=== PATIENT | female | born 1985 | race Caucasian/White ===

== ENCOUNTER 2018-09-30 05:14 | Emergency (ER) | payer SELFPAY ==
--- NOTE | 2018-09-30 05:29 | PDOC ---
History of Present Illness - General Stated Complaint: BACK PAIN - History of Present Illness Initial Comments: The pt is a 33F w/ a history of b/l nephrolithiasis who presents for evaluation of 2 days of left back/flank pain that has been intermittent, achy/sharp, radiates around towards her suprapubic area, is associated with dysuria/ hematuria and nausea, is worsened by movement/touch, and alleviated with recumbency. She reports being told she had stones 7 months ago and passed the ones on her right but not her left. She had a CT done in [place] but not one here. PMH: GERD PSH: Denies Meds: omeprazole, ranitidine SH: Denies x3 PCP: Denies 09/30/18 05:56 Past History - Past Medical History Allergies/Adverse Reactions: Allergies Allergy/AdvReac Type Severity Reaction Status Date / Time No Known Allergies Allergy Verified 09/30/18 05:39 Home Medications: Ambulatory Orders Nitrofurantoin Monohyd/M-Cryst [Macrobid -] 100 mg PO BID #14 capsule 09/30/18 Review of Systems - Review of Systems Able to Perform ROS?: Yes Comments:: GENERAL/CONSTITUTIONAL: No fever or chills. No weakness HEAD, EYES, EARS, NOSE AND THROAT: No change in vision. No change in hearing. No sore throat CARDIOVASCULAR: No chest pain or shortness of breath RESPIRATORY: Denies cough, hemoptysis GASTROINTESTINAL: +Nausea; Denies vomiting, diarrhea or constipation GENITOURINARY: +dysuria, hematuria MUSCULOSKELETAL: No joint or muscle swelling or pain. No neck or back pain SKIN: No rash NEUROLOGIC: No headache, vertigo, loss of consciousness, or change in strength/ sensation ENDOCRINE: No increased thirst. No abnormal weight change HEMATOLOGIC/LYMPHATIC: No anemia, easy bleeding, or history of blood clots ALLERGIC/IMMUNOLOGIC: No hives or skin allergy 09/30/18 05:29 Is the patient limited Khmer proficient: No *Physical Exam - Vital Signs Initial Vital Signs Temp Pulse Resp BP Pulse Ox 98.2 F 86 20 128/78 99 09/30/18 05:41 09/30/18 05:41 09/30/18 05:41 09/30/18 05:41 09/30/18 05:41 09/30/18 06:06 - Physical Exam Comments: GENERAL: Awake, alert, and oriented to person/place/time, in no acute distress HEAD: No signs of trauma, normocephalic, atraumatic EYES: PERRLA, EOMI, sclera anicteric, conjunctiva clear ENT: Hearing grossly normal, nares patent, oropharynx clear without exudates. Moist mucosa LUNGS: No distress, speaks in full sentences, clear to auscultation bilaterally HEART: Regular rate and rhythm, normal S1 and S2, no murmurs appreciated, peripheral pulses normal and equal bilaterally ABDOMEN: Soft, Right flank/suprapubic pain, R CVA TTP, normoactive bowel sounds. No guarding, no rebound EXTREMITIES: Normal inspection, Normal range of motion, no edema. No clubbing or cyanosis NEUROLOGICAL: Cranial nerves II through XII grossly intact. Normal speech, normal gait, no focal sensorimotor deficits SKIN: Warm, Dry 09/30/18 05:29 ED Treatment Course - LABORATORY CBC & Chemistry Diagram: 09/30/18 05:46 09/30/18 05:46 Medical Decision Making - Medical Decision Making The pt is a 33F w/ a history of GERD and b/l nephrolithiasis who presents for evaluation of 2 days of R back/flank pain with associated hematuria/dysuria Ddx: nephrolithiasis, infected stone, pyelo, UTI, consider ectopic, less likely AAA ED Course CMP, CBC, UA, UCx IVF, Ofirmev CT A&P w/o contrast 09/30/18 06:07 Upreg neg -Toradol 30mg IV once -Pt to CT UA w/ evidence of UTI -Macrobid 100mg BID for 7 days No leukocytosis No anemia 09/30/18 06:23 Lytes unremarkable No MARK LFTS wnl 09/30/18 06:35 Caliectasis left kidney and prominent left ureter, possibly due to occult or recently passed stone. Punctate stone left kidney and multiple small stones right kidney. No visible ureteral or bladder stones. Unremarkable pancreas and gallbladder. No bowel obstruction, colitis, diverticulitis, free fluid or free air. Normal appendix. Tiny umbilical hernia containing fat Plan for D/C w/ Urology Discharge instructions and return precautions given Pt in agreement and verbalized understanding Dispo: home 09/30/18 07:12 *DC/Admit/Observation/Transfer Diagnosis at time of Disposition: Nephrolithiasis UTI (urinary tract infection) Qualifiers: Urinary tract infection type: acute cystitis Hematuria presence: with hematuria Qualified Code(s): N30.01 - Acute cystitis with hematuria - Discharge Dispostion Disposition: HOME Condition at time of disposition: Stable Decision to Admit order: No - Prescriptions Prescriptions: Nitrofurantoin Monohyd/M-Cryst [Macrobid -] 100 mg PO BID #14 capsule - Referrals Referrals: Duncan Gupta MD [Staff Physician] - Dc Napoles MD [Staff Physician] - [facility] [Provider Group] - Patient Instructions Printed Discharge Instructions: Kidney Stones -- Adult, DI for Urinary Tract Infection (UTI) Additional Instructions: You were seen in the Emergency Department for evaluation of flank pain/back pain. You were found to have a urinary tract infection. A prescription was sent to the pharmacy that you specified. Take as directed. Review the handout provided at discharge. Follow up with the Urology referral provided. Return to the Emergency Department if you develop fevers/chills, chest pain, trouble breathing, worsening pain, difficulty urinating, or any new/concerning symptoms. Lo vieron en el departamento de emergencias para evaluar el dolor en el costado / dolor de espalda. Se descubri que tienes rafy infeccin del tracto urinario. Se envi rafy receta a la farmacia que especific. Tmelo orin se le indique. Revise el folleto proporcionado al nilam. Shania un seguimiento con la referencia de urologa proporcionada. Regrese al Departamento de Emergencias si presenta fiebre / escalofros, dolor en el pecho, dificultad para respirar, empeoramiento del dolor, dificultad para orinar o cualquier sntoma nuevo o preocupante. Print Language: ALGERIAN - Post Discharge Activity
[2018-09-30 05:43] VITALS: TEMP 98.2; BMI 21.2
[2018-09-30] MEDS ORDERED: ACETAMINOPHEN 1000 MG/100 ML VIAL (NON FORMULARY) IVPB ONE (05:43)
[2018-09-30] MEDS ORDERED: ONDANSETRON 4 MG/2 ML VIAL IVPUSH ONE (05:43)
[2018-09-30] MEDS ORDERED: ONDANSETRON 4 MG/2 ML VIAL ONE (05:50)
[2018-09-30] MEDS ORDERED: ACETAMINOPHEN INJECTION 100 ML IVPB ONE (05:50)
[2018-09-30 06:08] LABS: EPI CELLS 5.3 /HPF (0-5/HPF); HYALINE CASTS 8 /lpf (0-8); PH,URINE 5.5 (5.0-8.0); URINE APPEARANCE CLOUDY; URINE BACTERIA 100.6 /hpf (NEGATIVE); URINE BILIRUBIN NEGATIVE (NEGATIVE); URINE COLOR ORANGE; URINE GLUCOSE (UA) NEGATIVE (NEGATIVE); URINE KETONE NEGATIVE (NEGATIVE); URINE LEUK ESTERASE 1+ (NEGATIVE); URINE NITRITE NEGATIVE (NEGATIVE); URINE PROTEIN 1+ (NEGATIVE); URINE RBC 539 /hpf (0-4); URINE UROBILINOGEN 0.2 mg/dL (0.2-1.0); URINE WBC 39 /hpf (0-5)
[2018-09-30] MEDS ORDERED: KETOROLAC TROMETHAMINE 30 MG/1 ML VIAL IVPUSH ONE (06:10)
[2018-09-30] MEDS ORDERED: KETOROLAC TROMETHAMINE 30 MG/1 ML VIAL ONE (06:11)
[2018-09-30 06:13] LABS: BASO % 0.5 % (0-2.0); EOS % 3.1 % (0-4.5); HEMATOCRIT 41.8 % (32.4-45.2); HEMOGLOBIN 14.4 GM/dL (10.7-15.3); LYMPH % 45.4 % (8-40); MCH 30.1 pg (25.7-33.7); MCHC 34.3 g/dl (32.0-36.0); MEAN CELL VOLUME 87.7 fl (80-96); MEAN PLT VOLUME 8.2 fl (7.5-11.1); MONO % 8.2 % (3.8-10.2); NEUT % 42.8 % (42.8-82.8); PLATELET COUNT 296 K/MM3 (134-434); RBC 4.77 M/mm3 (3.60-5.2); RDW 13.1 % (11.6-15.6); WHITE BLOOD COUNT 8.5 K/mm3 (4.0-10.0)
[2018-09-30 06:29] LABS: ALBUMIN 4.2 g/dl (3.4-5.0); BILIRUBIN,TOTAL 0.2 mg/dL (0.2-1); BLOOD UREA NITROGEN 13.2 mg/dL (7-18); CALCIUM 9.3 mg/dL (8.5-10.1); CREATININE 0.7 mg/dL (0.55-1.3); POTASSIUM 4.1 mmol/L (3.5-5.1); TOT PROT 7.8 g/dl (6.4-8.2)
--- NOTE | 2018-09-30 06:58 | PDOC ---
Attending Attestation - Resident Resident Name: Kel Wen - ED Attending Attestation I have performed the following: I have examined & evaluated the patient, The case was reviewed & discussed with the resident, I agree w/resident's findings & plan, Exceptions are as noted - HPI HPI: 09/30/18 06:56 33F recent hx of nephrolithiasis that she passed. Here with similar px to the L side. - Physicial Exam PE: 09/30/18 06:57 +L sided CVAT Otherwise agree with detailed physical exam documented by resident - Medical Decision Making 09/30/18 06:57 Likely nephrolithiasis, consider pyelo, ascending infection, infected stone, impacted stone f/u labs, ua, ct dispo per clinical course 09/30/18 07:13 punctate stones in kidney, likely passed stone dc
[2018-09-30 07:34] VITALS: BP 106/64; PULSE 70
== END 2018-09-30 07:35 | disposition home or self-care (01) ==
LOC: JER 05:14
PROC: 3E033NZ Introduction of Analgesics, Hypnotics, Sedatives into Peripheral Vein, Percutaneous Approach (ICD-10-PCS; principal; 2018-09-30)
PROC: 3E0333Z Introduction of Anti-inflammatory into Peripheral Vein, Percutaneous Approach (ICD-10-PCS; 2018-09-30)
PROC: 3E033GC Introduction of Other Therapeutic Substance into Peripheral Vein, Percutaneous Approach (ICD-10-PCS; 2018-09-30)
DX: N30.01 Acute cystitis with hematuria (principal); N20.0 Calculus of kidney; K21.9 Gastro-esophageal reflux disease without esophagitis
CPT/HCPCS: 36415; 74176-TC; 80053; 81003; 84703; 85025; 87086; 99285-25; J0131